=== PATIENT | female | born 1965 | race Caucasian/White ===

== ENCOUNTER 2020-12-25 11:33 | Inpatient (IN) | payer BC, OTHER ==
[~2020-12-25] VITALS: Ht 165.1 cm; Wt 80.3 kg
[2020-12-25 11:34] VITALS: BP 154/86
[2020-12-25] MEDS ORDERED: ZYRTEC10 M5 PO (11:39)
[2020-12-25 12:00] LABS: HEMATOCRIT 40.8 % (37.0-47.0); HEMOGLOBIN 13.9 gm/dL (12.0-15.0); MCH 31.5 pg (26.0-34.0); MCHC 33.9 g/dL (28.0-37.0); MCV 92.9 fL (80.0-100.0); RBC 4.4 mil/uL (4.20-5.00); WBC 5.8 thou/uL (4.0-11.0)
[2020-12-25 12:17] LABS: ANION GAP 12 mmol/L (7-16); BUN 11 mg/dL (7-18); CALCIUM 8.9 mg/dL (8.5-10.1); CHLORIDE 105 mmol/L (98-107); CO2 24 mmol/L (21-32); CREATININE 0.7 mg/dL (0.6-1.0); GLUCOSE 117 mg/dL (74-106); POTASSIUM 3.8 mmol/L (3.5-5.1); SODIUM 141 mmol/L (136-145)
[2020-12-25 12:24] LABS: ALBUMIN 3.8 g/dL (3.4-5.0); SGOT 14 U/L (15-37); SGPT 25 U/L (30-65); TOTAL BILIRUBIN 0.5 mg/dL (0.2-1.0); TOTAL PROTEIN 7.1 g/dL (6.4-8.2); TROPONIN-I <0.06 ng/mL (<0.06)
--- NOTE | 2020-12-25 12:47 | EKG ---
[address] [address] [place] [address] ELECTROCARDIOGRAM REPORT Name: JOSENATALIE Room #: PRE [facility]..#: [id number] Admission: Attend Phys: Discharge: Date of : 67 Report #: [id number] [facility] ED Test Date: 2020-12-25 Test Time: 11:39:14 Pat Name: NATALIE GARCIA Department: Room: Gender: F Mother Superior: MPAALFREDO : 1965 Requested By: Cely Santoyo Order Number: [id number] MD: Jeremie Ruiz Measurements Intervals [place] Rate: 76 P: -11 CT: 158 QRS: -6 QRSD: 86 T: 39 QT: 390 QTc: 439 Interpretive Statements Sinus rhythm RSR' in V1 or V2, right VCD or RVH Consider anterior infarct No previous ECG available for comparison Electronically Signed On 12-25-2020 12:47:31 CDT by Jeremie Ruiz [email or web address] <ELECTRONICALLY SIGNED> By: Jeremie Ruiz MD, [facility] 12/25/20 1247 1139 1139 Jeremie Ruiz MD, FACC /EPI
[2020-12-25 13:40] VITALS: BP 130/76
[2020-12-25 14:02] LABS: CHOLESTEROL 158 mg/dL (<200); HDL CHOLESTEROL 48 mg/dL (>40); LDL CHOLESTEROL 75 mg/dL (<100); TC:HDL 3.3 Ratio (Not establshd); TRIGLYCERIDE 176 mg/dL (<150); VLDL 35 mg/dL (<40)
[2020-12-25] MEDS ORDERED: PROTONIX40 M2 PO (15:30)
[2020-12-25 16:00] VITALS: BP 109/72
--- NOTE | 2020-12-25 18:29 | CATHLAB ---
[facility] [place], [place] [address] INVASIVE PROCEDURE REPORT Name: NATALIE GARCIA Room #: 218-P ADM IN M.R.#: [id number] Admission: 12/25/20 Attend Phys: Pernell Baxter MD, Discharge: Date of : 67 Report #: [id number] THIS REPORT FOR: cc: FAM - Family physician unknown FAM - Family physician unknown Pernell Baxter MD [facility] ~ APPROVED REPORT Study performed: 12/25/2020 13:17:23 Patient Details Patient Status: ED Room #: The patient is a 55 year-old female Event Personnel Pernell Baxter Diet Counselor, Simona Sanches RN RN, Melissa Mcwilliams [place], Jordan RTR Monitor Procedures Performed Art Access - R femoral artery* Left Heart Cath w/or w/o Coronaries 1389059 [facility] [address] Initial Mod Sed Same Phys/QHP Gr5y 175368 01154 Mod Sed Same Phys/QHP Ea 048323 Hemostasis w/ Mynx Supravalvular Aortography Injection 8024192 ISVA Indication Chest pain Procedure Narrative The Right Groin^ was infiltrated with 1% Lidocaine subcutaneous anesthesia. A PINNACLE 6FR Sheath #[id number] sheath was inserted into the RFA^. Coronary angiography was performed using coronary diagnostic catheters. The right coronary system was accessed and visualized with a JR4 catheter. The left coronary system was accessed and visualized with a JL4 catheter. The left ventricle was accessed and visualized with a PIGTAIL catheter. Left ventriculogram was performed in 30 degree projection. Closure device was deployed with a 6 Fr MYNXGRIP 6/7F #[id number]. The patient tolerated the procedure well and there were no complications associated with the procedure. There was no hematoma. Intraoperative Conscious Sedation Sedation start time: 1434 Case end Time: 1505 Fentanyl 50 mcg Versed [address] [facility] [place] [place] [address] INVASIVE PROCEDURE REPORT Name: JOSENATALIE Room #: 218-P [facility] IN M.R.#: [id number] Admission: 12/25/20 Attend Phys: Pernell Baxter, Discharge: Date of : 67 Report #: [id number] Fluoro Time: 1.40 minutes Dose: DAP 1571.70 cGycm2 174 mGy Contrast Type and Amount: Omnipaque 60 ml Hemodynamics The aortic pressure is 108/60 mmHg with a mean of 75 mmHg. The left ventricular pressure is 117/3 mmHg with a mean of mmHg. The left ventricular end diastolic pressure is 16 mmHg. Conclusion #1. Normal coronary anatomy right dominant system. No occlusive disease is noted. No significant plaquing noted. #2 normal left ventricular size and systolic function EF 60%. Recommendations and plan: Continue aggressive risk factor modification. Chest pain does not appear to be of cardiac etiology suspect GI. Will follow discharge protocol. <ELECTRONICALLY SIGNED> By: Pernell Baxter MD, FACC 12/25/201827 27 27 Pernell Baxter MD, FACC /INF
--- NOTE | 2020-12-27 14:55 | EKG ---
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 : 1965 Requested By: Pernell Baxter Order Number: [id number] MD: Andrzej Sarmiento Measurements Intervals [place] Rate: 72 P: -4 NM: 168 QRS: -9 QRSD: 86 T: 25 QT: 414 QTc: 454 Interpretive Statements Sinus rhythm Poor R wave progression RSR' in V1 or V2, right VCD Compared to ECG 12/25/2020 11:39:14 No significant change was found Electronically Signed On 12-27-2020 14:54:52 CDT by Andrzej Sarmiento [email or web address] <ELECTRONICALLY SIGNED> By: Andrzej Sarmiento MD, [facility] 12/27/20 1454 1226 1226 Andrzej Sarmiento MD, [facility] /EPI
== END 2020-12-25 19:30 | disposition home or self-care (01) | DRG 287 ==
LOC: ER 11:33 → TBACV 13:39 → EROBS 13:39 → TBACV 13:51 → 2N 16:18
PROVIDERS: Nurse Practitioner; Nurse Practitioner Family; ADMIT Internal Medicine Cardiovascular Disease; ATTEND Internal Medicine Cardiovascular Disease
PROC: B2151ZZ Fluoroscopy of Left Heart using Low Osmolar Contrast (ICD-10-PCS; principal; 2020-12-25)
PROC: 4A023N7 Measurement of Cardiac Sampling and Pressure, Left Heart, Percutaneous Approach (ICD-10-PCS; principal; 2020-12-25)
PROC: B2111ZZ Fluoroscopy of Multiple Coronary Arteries using Low Osmolar Contrast (ICD-10-PCS; principal; 2020-12-25)
DX: R07.9 Chest pain, unspecified (principal); E78.5 Hyperlipidemia, unspecified; F17.210 Nicotine dependence, cigarettes, uncomplicated; Z20.822 Contact with and (suspected) exposure to COVID-19; Z88.6 Allergy status to analgesic agent; Z82.49 Family history of ischemic heart disease and other diseases of the circulatory system; Z71.6 Tobacco abuse counseling
CPT/HCPCS: 10081